=== PATIENT | female | born 1985 | race Caucasian/White ===

== ENCOUNTER 2020-07-04 10:46 | Emergency (ER) | payer MEDICAID ==
[~2020-07-04] VITALS: Ht 160 cm; Wt 54.5 kg
[~2020-07-04 10:46] MED LIST: MEDR150D9 IM; [UNRECOGNIZED DRUG - CODE] PO
[2020-07-04 11:13] VITALS: BP 113/62
--- NOTE | 2020-07-04 13:45 | NUR ---
PRIOR CALL TO [facility] INCIDENT NUMBER [id number]
--- NOTE | 2020-07-04 14:00 | NUR ---
[employer] AT [employer] .
== END 2020-07-04 14:47 | disposition home or self-care (01) ==
LOC: ER 10:47
DX: S90.31XA Contusion of right foot, initial encounter (principal); M79.671 Pain in right foot; Z72.89 Other problems related to lifestyle; Z88.0 Allergy status to penicillin; Z79.899 Other long term (current) drug therapy; X58.XXXA Exposure to other specified factors, initial encounter; Y93.89 Activity, other specified; Y92.89 Other specified places as the place of occurrence of the external cause; Y99.8 Other external cause status
CPT/HCPCS: 73630; 99283

== ENCOUNTER 2022-05-31 10:32 | Emergency (ER) | payer BC, MEDICAID ==
[~2022-05-31] VITALS: Ht 158.8 cm; Wt 68.2 kg
[2022-05-31 11:04] VITALS: BP 133/69
== END 2022-05-31 13:22 | disposition home or self-care (01) ==
LOC: ER 10:32
DX: M25.561 Pain in right knee (principal); M25.461 Effusion, right knee; W19.XXXA Unspecified fall, initial encounter; Y93.89 Activity, other specified; Y92.89 Other specified places as the place of occurrence of the external cause; Y99.8 Other external cause status
CPT/HCPCS: 73564; 99283; A6449